=== PATIENT | female | born 1935 | race Caucasian/White ===

== ENCOUNTER 2018-08-17 13:01 | Emergency (ER) | payer MEDICARE, BC ==
[2018-08-17] MEDS ORDERED: Acetaminophen 325 MG Tab PO ONE (14:57)
--- NOTE | 2018-08-17 14:57 | EDM.PDOC ---
ED HPI GENERAL MEDICAL PROBLEM - General Chief Complaint: Cardiovascular Problem Stated Complaint: BLOOD PRESSURE UP Time Seen by Provider: 08/17/18 13:45 Source of Information: Reports: Patient History Limitations: Reports: No Limitations - History of Present Illness INITIAL COMMENTS - FREE TEXT/NARRATIVE: alert 83-year-old patient presents with vague headache discomfort and feeling unwell. Patient states on Sunday she had a fairly significant headache with nausea and vomiting. She was evaluated on Sunday at her PCP office. She was given IV fluids and her symptoms seemed to improved slightly. Patient has no history of hypertension but was told her BP was high this week by her primary care provider. She was asked to check her blood pressure over the course of the last week. Patient is noted her blood pressure was 190 or greater. Her home BP machine was not working to read her blood pressure. Patient states she went to [employer] to check her blood pressure. Her continued headache and blood pressure concerns caused concern so she presented to the ER today with headache and elevated blood pressure. Her last meal was breakfast this morning has not eaten since. She is nauseated does not feel hungry at this point in time. Patient is otherwise healthy she is visiting the area.with significant other. She is from [place]. Patient drove herself here to the ER for evaluation. 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: Musculoskeletal History: Reports: Arthritis - Infectious Disease History Infectious Disease History: Reports: Chicken Pox, Measles, Mumps - Past Surgical History Head Surgeries/Procedures: Reports: None HEENT Surgical History: Reports: Adenoidectomy, Cataract Surgery, Tonsillectomy GI Surgical History: Reports: Colonoscopy Female Surgical History: Reports: Hysterectomy Dermatological Surgical History: Reports: None Social & Family History - Tobacco Use Smoking Status *Q: Former Smoker Used Tobacco, but Quit: Yes Month/Year Tobacco Last Used: 1995 Second Hand Smoke Exposure: No - Caffeine Use Caffeine Use: Reports: Coffee - Alcohol Use Days Per Week of Alcohol Use: 7 Number of Drinks Per Day: 1 Total Drinks Per Week: 7 - Recreational Drug Use Recreational Drug Use: No ED ROS GENERAL - Review of Systems Review Of Systems: ROS reveals no pertinent complaints other than HPI. ED EXAM, GENERAL - Physical Exam Exam: See Below Exam Limited By: No Limitations General Appearance: Alert, WD/WN, Mild Distress Eye Exam: Bilateral Eye: EOMI, PERRL Ears: Normal External Exam, Normal Canal, Hearing Grossly Normal, Normal TMs Nose: Normal Inspection, Normal Mucosa, No Blood Throat/Mouth: Normal Inspection, Normal Lips, Normal Teeth, Normal Gums, Normal Oropharynx, Normal Voice, No Airway Compromise Head: Normocephalic Neck: Normal Inspection, Supple, Non-Tender, Full Range of Motion Respiratory/Chest: No Respiratory Distress, Lungs Clear, Normal Breath Sounds Cardiovascular: Normal Peripheral Pulses, Regular Rate, Rhythm (regarding), Systolic Murmur GI/Abdominal: Normal Bowel Sounds, Soft, Non-Tender Back Exam: Normal Inspection, Full Range of Motion, NT Extremities: Normal Inspection, Normal Range of Motion Neurological: Alert, Oriented, CN II-XII Intact, Normal Cognition, Normal Gait, No Motor/Sensory Deficits Psychiatric: Normal Affect, Normal Mood Skin Exam: Warm, Dry, Intact, Normal Color, No Rash Lymphatic: No Adenopathy EKG INTERPRETATION EKG Date: 08/17/18 Time: 14:45 Rhythm: NSR Rate (Beats/Min): 76 [place]: Normal P-Wave: Present QRS: Normal ST-T: Other (V1 Biphasic T wave and V2 los of verticle projection of Q wave, 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 DIRECTED Care 08/17/18 15:08 Active Vital Signs [RC] PFP Care 08/17/18 13:44 Active Nitroglycerin/D5W [Nitroglycerin 25 MG/D5W 250 ML] Med 08/17/18 15:15 Active 25 mg in 250 ml IV TITRATE Sodium Chloride 0.9% [Saline Flush] Med 08/17/18 15:08 Active 10 ml FLUSH ASDIRECTED PRN Peripheral IV Insertion Adult [OM.PC] Urgent Oth 08/17/18 15:08 Ordered EKG 12 Lead [EK] Stat Ther 08/17/18 13:44 Ordered Medication Orders Nitroglycerin/Dextrose (Nitroglycerin 25 Mg/D5w 250 Ml) 25 mg in 250 mls @ 3 mls/hr IV TITRATE CARLOS EDUARDO; Protocol Last Titration: 08/17/18 16:15 Dose: 15 mcg/min, 9 mls/hr Titration: 08/17/18 16:05 Dose: 10 mcg/min, 6 mls/hr Admin: 08/17/18 15:19 Dose: 5 mcg/min, 3 mls/hr Sodium Chloride (Saline Flush) 10 ml FLUSH ASDIRECTED PRN PRN Reason: Keep Vein Open Last Admin: 08/17/18 15:15 Dose: 10 ml Labs: Laboratory Tests 08/17/18 08/17/18 08/17/18 Range/Units 13:54 13:54 14:03 WBC 7.0 (4.5-11.0) K/uL RBC 3.83 (3.30-5.50) M/uL Hgb 11.8 L (12.0-15.0) g/dL Hct 36.9 (36.0-48.0) % MCV 96 (80-98) fL MCH 31 (27-31) pg MCHC 32 (32-36) % Plt Count 268 (150-400) K/uL Neut % (Auto) 61 (36-66) % Lymph % (Auto) 27 (24-44) % [place] % (Auto) 9 H (2-6) % Eos % (Auto) 3 (2-4) % Baso % (Auto) 0 (0-1) % Sodium 141 (140-148) mmol/L Potassium 3.9 (3.6-5.2) mmol/L Chloride 103 (100-108) mmol/L Carbon Dioxide 30 (21-32) mmol/L Anion Gap 7.7 (5.0-14.0) mmol/L BUN 14 (7-18) mg/dL Creatinine 0.9 (0.6-1.0) mg/dL Est Cr Clr Drug Dosing 38.12 mL/min Estimated GFR (MDRD) 60 (>60) Glucose 90 (74-106) mg/dL Calcium 9.5 (8.5-10.1) mg/dL Magnesium 2.0 (1.8-2.4) mg/dL Troponin I < 0.017 (0.000-0.056) ng/mL Urine Color Urine Appearance Urine pH (4.5-8.0) Ur Specific [place] (1.008-1.030) Urine Protein (NEGATIVE) mg/dL Urine Glucose (UA) (NEGATIVE) mg/dL Urine Ketones (NEGATIVE) mg/dL Urine Occult Blood (NEGATIVE) Urine Nitrite (NEGATIVE) Urine Bilirubin (NEGATIVE) Urine Urobilinogen (NORMAL) mg/dL Ur Leukocyte Esterase (NEGATIVE) Urine RBC (0-5) Urine WBC (0-5) Ur Epithelial Cells Amorphous Sediment Urine Bacteria Urine Mucus 08/17/18 Range/Units 14:14 WBC (4.5-11.0) K/uL RBC (3.30-5.50) M/uL Hgb (12.0-15.0) g/dL Hct (36.0-48.0) % MCV (80-98) fL MCH (27-31) pg MCHC (32-36) % Plt Count (150-400) K/uL Neut % (Auto) (36-66) % Lymph % (Auto) (24-44) % [place] % (Auto) (2-6) % Eos % (Auto) (2-4) % Baso % (Auto) (0-1) % Sodium (140-148) mmol/L Potassium (3.6-5.2) mmol/L Chloride (100-108) mmol/L Carbon Dioxide (21-32) mmol/L Anion Gap (5.0-14.0) mmol/L BUN (7-18) mg/dL Creatinine (0.6-1.0) mg/dL Est Cr Clr Drug Dosing mL/min Estimated GFR (MDRD) (>60) Glucose (74-106) mg/dL Calcium (8.5-10.1) mg/dL Magnesium (1.8-2.4) mg/dL Troponin I (0.000-0.056) ng/mL Urine Color Yellow Urine Appearance Clear Urine pH 7.0 (4.5-8.0) Ur Specific [place] 1.015 (1.008-1.030) Urine Protein Negative (NEGATIVE) mg/dL Urine Glucose (UA) Normal (NEGATIVE) mg/dL Urine Ketones Negative (NEGATIVE) mg/dL Urine Occult Blood Negative (NEGATIVE) Urine Nitrite Negative (NEGATIVE) Urine Bilirubin Negative (NEGATIVE) Urine Urobilinogen Normal (NORMAL) mg/dL Ur Leukocyte Esterase Trace (NEGATIVE) Urine RBC 0-5 (0-5) Urine WBC 0-5 (0-5) Ur Epithelial Cells Few Amorphous Sediment Not seen Urine Bacteria Few Urine Mucus Not seen Meds: Medications Generic Name Dose Route Start Last Admin Trade Name Freq PRN Reason Stop Dose Admin Nitroglycerin/Dextrose 25 mg in 250 mls @ 3 mls/hr 08/17/18 15:15 08/17/18 16 :15 Nitroglycerin 25 Mg/D5w 250 Ml IV 15 mcg/min TITRATE CARLOS EDUARDO 9 mls/hr Titration Protocol 5 MCG/MIN Sodium Chloride 10 ml 08/17/18 15:08 08/17/18 15:15 Saline Flush FLUSH 10 ml ASDIRECTED PRN Administration Keep Vein Open Discontinued Medications Generic Name Dose Route Start Last Admin Trade Name Freq PRN Reason Stop Dose Admin Acetaminophen 650 mg 08/17/18 14:57 Tylenol PO 08/17/18 14:58 NOW ONE Lisinopril 5 mg 08/17/18 15:00 Prinivil PO 08/17/18 15:01 ONETIME ONE - Radiology Interpretation Free Text/Narrative:: CXR PA/LAT: No acute cardiopulmonary findings noted. CT Head: findings: Prominent ventricles themselves, consistent with age-related cortical volume loss. There is a punctate hyperdensity in the right temporal lobe which is nonspecific and may represent a focal subarachnoid hemorrhage. No extra axial collection. Bilateral basal ganglia consultations. No mass effect or edema. No CT evidence of acute or large territory infarct. Vascular calcification spell base. Visualized. Nasal sinuses and mastoid air cells are well aerated. Cavarum is unremarkable. Impression tight hyperdensity in the right temporal lobe may represent a tiny focus of subarachnoid hemorrhage. Recommended. In approximately 6 hours for further evaluation. Spoke to Radiologist via phone call at time of report. - Re-Assessments/Exams Free Text/Narrative Re-Assessment/Exam: Discussed positive head CT showing SAH Right Temporal area.Calcification noted involving the basal ganglion. Discuss IV BP management with Dr Mchugh and Nitro gtt was recommended due to fast acting and fast removal for more control with blood pressure. Nitro started at 5mcg/min to keep blood pressure at or below 160 SBP. Patient state headache continues with SBP 220+. Discussed Transfer to [facility] requested and closest appropriate location. 08/17/18 15:15 Calling [facility] regarding transfer to Neuro IR vs Hospitalist for monitoring and repeat CT scan in 6 hours. I spoke to Neurosurgery Interventionalist regarding SAH noted on CT scan. 08/17/18 16:09 Departure - Departure Time of Disposition: 16:37 Disposition: DC/Tfer to Acute Hospital 02 Reason for Transfer *Q: Primary PCI Indicated Condition: Fair Clinical Impression: Hypertensive emergency, Headache, SAH (subarachnoid hemorrhage) Referrals: PCP,None [Primary Care Provider] - Forms: ED Department Discharge - My Orders Last 24 Hours: My Active Orders 08/17/18 13:44 Cardiac Monitoring [RC] .As Directed Vital Signs [RC] PFP EKG 12 Lead [EK] Stat 08/17/18 13:45 EKG Documentation Completion [RC] ASDIRECTED 08/17/18 15:08 Peripheral IV Care [RC] . DIRECTED Sodium Chloride 0.9% [Saline Flush] 10 ml FLUSH ASDIRECTED PRN Peripheral IV Insertion Adult [OM.PC] Urgent 08/17/18 15:15 Nitroglycerin/D5W [Nitroglycerin 25 MG/D5W 250 ML] 25 mg in 250 ml IV TITRATE - Assessment/Plan Last 24 Hours: My Active Orders 08/17/18 13:44 Cardiac Monitoring [RC] .As Directed Vital Signs [RC] PFP EKG 12 Lead [EK] Stat 08/17/18 13:45 EKG Documentation Completion [RC] ASDIRECTED 08/17/18 15:08 Peripheral IV Care [RC] . DIRECTED Sodium Chloride 0.9% [Saline Flush] 10 ml FLUSH ASDIRECTED PRN Peripheral IV Insertion Adult [OM.PC] Urgent 08/17/18 15:15 Nitroglycerin/D5W [Nitroglycerin 25 MG/D5W 250 ML] 25 mg in 250 ml IV TITRATE
[2018-08-17] MEDS ORDERED: Lisinopril 5 MG Tab PO ONE (15:00)
[2018-08-17] MEDS ORDERED: Sodium Chloride 0.9% 10 ML Syringe FLUSH PRN (15:08)
[2018-08-17] MEDS ORDERED: Nitroglycerin/D5W 25 MG/250 ML BOTTLE IV SCH (15:15)
--- NOTE | 2018-08-17 15:45 | CRLCR ---
Indication: Elevated blood pressure. Technique: PA and lateral views the chest were obtained. Comparison: None Findings: Heart is normal in size. The right hemidiaphragm is mildly elevated. No infiltrate, pleural effusion, or pneumothorax is identified. Impression: No acute cardiopulmonary process. Dictated by Hayley Augustine MD @ Aug 17 2018 2:37PM Signed by Dr. Hayley Augustine @ Aug 17 2018 2:37PM
--- NOTE | 2018-08-17 15:45 | CRLCT ---
INDICATION: Headache, elevated blood pressure. TECHNIQUE: CT Head without contrast. COMPARISON: None FINDINGS: Prominence of ventricles and sulci, consistent with age related cerebral volume loss. There is a punctate hyperdensity in the right temporal lobe (series 3, image 18), which is nonspecific, but may represent a tiny focus of subarachnoid hemorrhage. No extra axial collection. Bilateral basal ganglia calcifications. No mass effect or edema. No CT evidence of acute, large territorial infarction. Vascular calcifications skullbase. Visualized paranasal sinuses and mastoid air cells are well aerated. Calvarium is unremarkable. IMPRESSION: Punctate hyperdensity the right temporal lobe may represent a tiny focus of subarachnoid hemorrhage. Recommend repeat CT in approximately 6 hours for further evaluation. Findings discussed with Dr. Hung on 08/17/2018 3 p.m.. Dictated by Shayy Colin MD @ 08/17/2018 3:02:14 PM Please note that all CT scans at this facility use dose modulation, iterative reconstruction, and/or weight-based dosing when appropriate to reduce radiation dose to as low as reasonably achievable. Dictated by: Shayy Colin MD @ 08/17/2018 15:02:20 (Electronically Signed)
== END 2018-08-17 16:55 ==
LOC: JP.ED 13:01
DX: I60.9 Nontraumatic subarachnoid hemorrhage, unspecified (principal); I16.0 Hypertensive urgency; K21.9 Gastro-esophageal reflux disease without esophagitis; Z87.891 Personal history of nicotine dependence; Z79.899 Other long term (current) drug therapy
CPT/HCPCS: 36415; 70450; 71046; 80048; 81001; 83735; 84484; 85025; 93005; 99285; J3490